=== PATIENT | female | born 1995 | race Caucasian/White ===

== ENCOUNTER 2016-02-14 07:31 | Emergency (ER) | payer OTHER ==
[2016-02-14 07:44] VITALS: BP 116/68
--- NOTE | 2016-02-14 08:27 | UC ---
Throat Pain/Nasal [place] HPI - HPI Summary HPI Summary: 20 yo female with sore throat x 2 days no f/c no headache no myalgia - History of Current Complaint Chief Complaint: UCRespiratory Stated Complaint: SORE THROAT Time Seen by Provider: 02/14/16 08:08 Hx Obtained From: Patient Hx Last Menstrual Period: 2.5 weeks Onset/Duration: Gradual Onset, Lasting Days Severity: Moderate Pain Intensity: 4 Pain Scale Used: 0-10 Numeric Cough: Nonproductive Associated Signs & Symptoms: Positive: Negative - Epiglottits Risk Factors Epiglottis Risk Factors: Negative - Allergies/Home Medications Allergies/Adverse Reactions: Allergies Allergy/AdvReac Type Severity Reaction Status Date / Time Amoxicillin [From Augmentin] Allergy Hives Verified 02/14/16 07:37 Clavulanic Acid Allergy Hives Verified 02/14/16 07:37 [From Augmentin] Home Medications: Home Medications Cetirizine* [ZyrTEC*] 1 tab PRN 02/14/16 [History] Ibuprofen TAB* [Advil TAB*] 2 tab PO PRN 02/14/16 [History] PMH/Surg Hx/FS Hx/Imm Hx Previously Healthy: Yes - Surgical History Surgical History: None Surgery Procedure, Year, and Place: First rib resection 2008 - Family History Known Family History: Positive: Hypertension - Social History Alcohol Use: Occasionally Substance Use Type: None Smoking Status (MU): Never Smoked Tobacco - Immunization History Most Recent Influenza Vaccination: doesn't get Review of Systems Constitutional: Negative Skin: Negative Eyes: Negative ENT: Sore Throat Respiratory: Negative Cardiovascular: Negative Gastrointestinal: Negative Genitourinary: Negative Motor: Negative Neurovascular: Negative Musculoskeletal: Negative Neurological: Negative Psychological: Negative All Other Systems Reviewed And Are Negative: Yes Physical Exam Triage Information Reviewed: Yes Appearance: Well-Appearing, No Pain Distress, Well-Nourished Vital Signs: Initial Vital Signs Temp 97.6 F 02/14/16 07:39 Pulse 68 02/14/16 07:39 Resp 17 02/14/16 07:39 BP 116/68 02/14/16 07:39 Pulse Ox 96 02/14/16 07:39 Vital Signs Reviewed: Yes Eyes: Positive: Conjunctiva Clear ENT: Positive: Hearing grossly normal, Nasal congestion, TMs normal, Tonsillar swelling. Negative: Tonsillar exudate, Trismus, Muffled/hoarse voice Neck: Positive: Supple, Enlarged Nodes @ - tender ant cerv nodes Respiratory: Positive: Lungs clear, Normal breath sounds, No respiratory distress Cardiovascular: Positive: RRR, No Murmur Musculoskeletal Exam: Normal Musculoskeletal: Positive: ROM Intact, No Edema Neurological Exam: Normal Neurological: Positive: Alert Psychological Exam: Normal Skin Exam: Normal Throat Pain/Nasal Course/Dx - Course Course Of Treatment: rapid strep (-) - Differential Dx/Diagnosis Provider Diagnoses: tonsillitis Discharge - Discharge Plan Condition: Stable Disposition: HOME Patient Education Materials: Tonsillitis (ED) Additional Instructions: warm salt water gargles tylenol or advil your strep test was negative recheck in 5-7 days if not better
== END 2016-02-14 08:35 | disposition home or self-care (01) ==
LOC: UCEAST 07:31
DX: J03.90 Acute tonsillitis, unspecified (principal); Z88.0 Allergy status to penicillin
CPT/HCPCS: 87651; 99211; G0463